=== PATIENT | female | born 1995 | race African-American/Black ===

== ENCOUNTER 2024-07-12 09:04 | Emergency (ER) | payer BC, SELFPAY ==
[2024-07-12 09:11] VITALS: BP 124/87
[2024-07-12 09:40] VITALS: BMI 31.8
[2024-07-12] MEDS: ZOFRAN 4 MG IV (09:41)
[2024-07-12 09:55] LABS: % Basophils 0.7 % (0-2); % Eosinophils 2.1 % (0-6); % Immature Granulocytes 0.2 % (0-0.5); % Monocytes 11.6 % (1.7-9.3); % Neutrophils 60.4 % (42.2-75.2); Absolute Eosinophils 0.1 10^3/uL (0-0.7); Absolute Lymphocytes 1.5 10^3/uL (1.2-3.4); Absolute Monocytes 0.7 10^3/uL (0.1-0.6); Absolute Neutrophils 3.5 10^3/uL (1.4-6.5); Hematocrit 36.5 % (37.0-47.0); Hemoglobin 12.2 g/dL (12.0-16.0); Mean Corp Hgb Conc. 33.4 g/dL (33.0-37.0); Mean Corpuscular Hgb 27.5 pg (27.0-31.0); Mean Corpuscular Volume 82.4 fL (81.0-99.0); Mean Platelet Volume 8.1 fL (7.4-10.4); Nucleated Red Blood Cells % 0 %; Platelet Count 392 10^3/uL (130-400); Red Blood Cell Count 4.43 10^6/uL (4.20-5.40); Red Cell Dist. Width 14.4 % (11.5-14.5); White Blood Cell Count 5.8 10^3/uL (4.8-10.8)
[2024-07-12 10:07] LABS: HCG, Serum Qualitative Screen Negative
[2024-07-12 10:12] LABS: ALT (SGPT) 42 U/L (0-35); AST (SGOT) 64 U/L (14-36); Albumin 4.6 g/dl (3.5-5.0); Alkaline Phosphatase 88 U/L (38-126); Blood Urea Nitrogen 12 mg/dl (7-17); Calcium 9.6 mg/dl (8.4-10.2); Carbon Dioxide 25 mmol/L (22-30); Chloride 104 mmol/L (98-107); Estimated Creatinine Clearance 96 ml/min; Glucose 88 mg/dl (70-99); Potassium 4.3 mmol/L (3.5-5.1); Sodium 143 mmol/L (135-145); Total Bilirubin 0.3 mg/dl (0.2-1.3); Total Protein 7.7 g/dl (6.3-8.2); eGFR > 60.00
[2024-07-12 10:22] LABS: Troponin I < 0.012 ng/ml
[2024-07-12] MEDS: TORADOL 15 MG IV (10:23)
[2024-07-12 10:40] LABS: Lipase 58 U/L (23-300)
[2024-07-12 11:38] LABS: Urine Albumin Trace (Neg - Trace); Urine Bilirubin Negative (Negative); Urine Character Very Cloudy (Clear); Urine Color Yellow; Urine Glucose Negative (Negative); Urine Ketone Negative (Negative); Urine Leukocyte Trace (Negative); Urine Nitrite Negative (Negative); Urine Occult Blood 4+ (Negative); Urine Urobilinogen Negative (Neg - 1+)
--- NOTE | 2024-07-12 11:51 | ED.GENMED ---
History of Present Illness
General
Chief Complaint: Chest Pain
Source: patient
Exam Limitations: none
Time Seen by Provider: 07/12/24 09:15
Nursing documentation reviewed up to this point in time: agreed with
History of Present Illness
History of Present Illness:
28-year-old female without significant past medical history presenting to the emergency department today with concerns of chest discomfort rating to the abdomen and some achy joints over the past few days. Described as an achy pressure with
associated vomiting throughout the morning this morning. Denies fevers change in bowel movements.
Past History
Past History
ED Past Medical History: None
ED Past Surgical History: None
Social History
Tobacco: Non-smoker
Alcohol: None
Drug: None
Review of Systems
Review of Systems
Allergies reviewed?: Yes
All Other Systems: ROS reviewed and negative except as documented in HPI and ROS
Phy Exam
Physical Exam
Physical Exam:
GENERAL: Alert , in no apparent distress
EYE: pupils equal and reactive
NECK: Supple, no significant adenopathy.
ENT: o/p clr, mmm.
CARDIAC: Regular rate and rhythm .
LUNGS: Clear breath sounds bilaterally, no acute respiratory distress, no wheezes/rales/rhonchi
ABDOMEN: Soft, without focal tenderness, no r/g, no cvat
NEUROLOGICAL: Alert and oriented, no focal neuro deficits
SKIN: Warm and dry, skin intact.
MUSCULOSKELETAL: No edema, well perfused.
PSYCH: Normal and appropriate interaction.
Scores
Heart Score for Chest Pain Patients
STEMI patient?: No
History: Slightly or Non-Suspicious
ECG: Normal
Age: </= 45 years
Risk Factors: No Risk Factors
Troponin: </= Normal Limit
Heart Score for Chest Pain Patients: 0
Heart Score Risk: 2.5% MACE over next 6 weeks
Course
Orders/Labs/Results
Orders:
Orders
07/12/24 09:05
ECG [Electrocardiogram (*1)] Urgent
Reason for Study: Chest Pain
EKG- Treatment ONCE
07/12/24 09:29
Test Result ONCE
US Abdomen Complete/Upper Urgent
Comment:
Reason For Exam: upper abd pain RUQ pain
07/12/24 09:32
Ondansetron Injectable [Zofran] 4 mg .ROUTE .STK-MED ONE
07/12/24 09:40
Complete Blood Count/With Diff Urgent
Comprehensive Metabolic Panel Urgent
HCG, Serum Qualitative Screen Urgent
Lipase Urgent
Troponin I Urgent
07/12/24 09:41
Ondansetron Injectable [Zofran] 4 mg IV NOW STA
07/12/24 09:51
Ketorolac [Toradol] 15 mg IV NOW STA
07/12/24 11:27
Urinalysis Reflex To Culture Urgent
Date Specimen was Collected: 07/12/24
Time Specimen was Collected: 11:26
Urine Microscopic Reflex Cult Urgent
07/12/24 11:51
Chest [CR Chest - 2 Views ] Urgent
Comment:
Reason For Exam: CP
07/12/24 12:14
Diphenhydramine [Benadryl] 25 mg IV NOW STA
Metoclopramide [Reglan] 10 mg IV NOW STA
Abnormal Lab Results
07/12/24 07/12/24
09:40 11:27
Hct 36.5 L %
(37.0-47.0)
Absolute Monos (auto) 0.7 H 10^3/uL
(0.1-0.6)
Monocytes % 11.6 H %
(1.7-9.3)
AST 64 H U/L
(14-36)
ALT 42 H U/L
(0-35)
Ur Occult Blood Reflex 4+ A
(Negative)
Leukocyte Esterase Rfl Trace A
(Negative)
Urine RBC >100 A /HPF
(0-2)
Urine Bacteria (Reflex) Few A
(Negative)
07/12/24 09:40
07/12/24 09:40
Vital Signs
Initial and Last Documented VS:
Initial Vital Signs
Temp Pulse Resp BP Pulse Ox
98.5 F 82 18 124/87 98
07/12/24 09:11 07/12/24 09:11 07/12/24 09:11 07/12/24 09:11 07/12/24 09:11
Last Documented Vital Signs
Temp Pulse Resp BP Pulse Ox
98.5 F 89 25 124/87 96
07/12/24 09:11 07/12/24 13:15 07/12/24 13:15 07/12/24 09:11 07/12/24 13:15
MDM/Problems Addressed
MDM/Problems Addressed:
28-year-old female presenting to the emergency department with multiple symptoms including chest discomfort abdominal pain achy joints. Vital signs here are normal patient in no obvious distress here labs obtained with a very slight elevation of
LFTs which were discussed with the patient. Patient did have red blood cells and squamous epithelial cells on urinalysis but is menstruating. Otherwise chest x-ray without emergent abnormalities ultrasound normal. No signs of emergent life
threats. Medications given here with significant improvement of symptoms. Able to tolerate by mouth stable for discharge and close outpatient follow-up. Return precautions given.
*Critical Care Note
Total Time (30-74mins, 75-104mins- exclusive of procedures): Not Applicable
ED Attending Note
-
Portions of this chart may have been created with voice recognition software.� Occasional wrong word or��sound alike� substitutions may have occurred due to the inherent limitations of voice recognition software.
Discharge Plan
Departure
Patient Disposition: Home (Routine Discharge)
Date of Disposition: 07/12/24
Time of Disposition: 13:59
Patient with high blood pressure during this ER visit?: No
Condition: Good
Covid-19: Not Applicable
Discharge Problem:
Transaminitis, Chest pain
Instructions: Chest Pain PCP Follow Up
Prescriptions:
New
ondansetron 4 mg tablet,disintegrating
4 mg PO Q6H PRN (Reason: nausea and vomiting) Qty: 7 0RF
No Action
Tylenol :
1,000 mg PO Q6H
penicillin V potassium 500 MG tablet
500 mg PO QID Qty: 27 0RF
tramadol 50 MG tablet
50 mg PO Q6HPRN PRN (Reason: pain) Qty: 10 0RF
Referrals:
[facility] [Provider Group] - Follow up in 5-7 days
NONE,* [Family Provider] -
Stand Alone Forms: Return to Work
Activity Restrictions/Additional Instructions:
You came to the emergency department today with concerns of multiple symptoms. Here your reassuring assessment. Please feel closely with the primary care doctor within the next few days for reassessment. Return to the emergency department any
worsening, new or concerning symptoms.
Interventions
Interventions:
*Risk Screen - Suicide Last Done: 07/12/24 09:13
*General Assessment Last Done: 07/12/24 09:13
*Neglect/Abuse Screening Last Done: 07/12/24 09:52
ED- Fall Risk Assessment Last Done: 07/12/24 09:54
*ED COVID-19 Vaccine History Last Done: 07/12/24 09:52
ED- Cardiac Assessment Last Done: 07/12/24 09:54
Discharge Date and Time
Print Language: [place]
[2024-07-12 12:11] LABS: Urine Squamous Cell 26-30 /LPF (Few)
[2024-07-12 12:13] LABS: Urine Amorphous Seen; Urine Red Blood Cell >100 /HPF (0-2)
[2024-07-12 12:14] LABS: Urine Bacteria Few (Negative); Urine White Cell 0-2 /HPF (0-5)
[2024-07-12] MEDS: BENADRYL 25 MG IV (12:57)
[2024-07-12] MEDS: REGLAN 10 MG IV (12:58)
[2024-07-12 14:41] VITALS: BP 120/82
== END 2024-07-12 14:42 | disposition home or self-care (01) ==
LOC: EMR 09:04
PROVIDERS: Physician Assistant; EMERGENCY PHYSICIAN Emergency Medicine
DX: R07.89 Other chest pain (principal); R74.01 Elevation of levels of liver transaminase levels; R11.10 Vomiting, unspecified
CPT/HCPCS: 96374; 96375; 99285; 71046; 76700; 80053; 81003; 81015; 83690; 84484; 84703; 85025; 93005